=== PATIENT | female | born 1950 | race Caucasian/White ===

== ENCOUNTER 2016-07-29 20:28 | Emergency (ER) | payer MEDICAID ==
[~2016-07-29] VITALS: Ht 167.6 cm; Wt 64.0 kg
[2016-07-29] MEDS: IBUPROFEN 400MG TABLET PO ONE ×2 (22:17→23:30)
[2016-07-29] MEDS: HYDROCODONE/ACETAMINOPHEN 5/325MG TABLET PO ONE ×2 (22:18→23:30)
[2016-07-30 08:24] VITALS: BP 167/84
== END 2016-07-30 08:28 | disposition home or self-care (01) ==
LOC: ER 20:29
DX: S76.192A Other specified injury of left quadriceps muscle, fascia and tendon, initial encounter (principal); X50.0XXA Overexertion from strenuous movement or load, initial encounter; Y93.89 Activity, other specified; Y92.89 Other specified places as the place of occurrence of the external cause; Y99.8 Other external cause status
CPT/HCPCS: 73560; 99284; L1830